=== PATIENT | male | born 1935 | race African-American/Black ===

== ENCOUNTER 2019-01-28 12:23 | Emergency (ER) | payer MEDICARE, OTHER ==
[~2019-01-28] VITALS: Ht 180.3 cm; Wt 109.0 kg
[~2019-01-28 12:23] MED LIST: AMLODIPINE; HYDROCHLOROTHIAZIDE; MECL-109 PO; NORVASC; PRED5DRO7 OP
[2019-01-28 12:38] VITALS: BP 144/63
== END 2019-01-28 15:07 | disposition home or self-care (01) ==
LOC: ER 12:23
DX: D17.9 Benign lipomatous neoplasm, unspecified (principal); I10 Essential (primary) hypertension; Z87.891 Personal history of nicotine dependence; Z88.0 Allergy status to penicillin; Z79.899 Other long term (current) drug therapy; Z85.46 Personal history of malignant neoplasm of prostate
CPT/HCPCS: 73610; 87070; 99284

== ENCOUNTER 2020-06-19 20:12 | Inpatient (IN) | payer OTHER ==
[~2020-06-19] VITALS: Ht 177.8 cm; Wt 113.9 kg
[~2020-06-19 20:12] MED LIST changes: +ALBU18HF2 IH; +AMLO10TA4 MT; +ASPI-1497 MT; +DYR5 MT; +FURO-151 MT; +IPRA3AMP9 NEB; +LIFI1DRO EACHEYE; +LIP40 MT; -MECL-109 PO; +MECL-159 PO; -NORVASC; +POTA20TA82 MT
[2020-06-19 21:26] LABS: BASOPHILS % 0.9 % (0.0-2.0); EOSINOPHILS % 2.4 % (0.0-5.0); HEMATOCRIT. 38.3 % (42.0-52.0); HEMOGLOBIN. 13.1 g/dL (14.0-18.0); LYMPHOCYTES % 19.2 % (20.0-50.0); MEAN CORPUSCULAR HEMOGLOBIN 31.5 pg (28.0-32.0); MEAN PLATELET VOLUME 9.1 fl (7.4-10.4); MONOCYTES % 11.2 % (2.0-8.0); NEUTROPHILS % 66.3 % (40.0-76.0); PLATELET 170 x1000/uL (130-400); RED BLOOD CELL COUNT 4.17 mill/uL (4.7-6.1); RED CELL DISTRIBUTION WIDTH 14.6 % (11.6-14.6)
[2020-06-19 21:30] LABS: CHLORIDE 100 mEq/L (98-107)
[2020-06-19 21:33] LABS: ETHANOL BLOOD < 10 mg/dL
[2020-06-19 21:43] LABS: *AMPHETAMINES SCREEN URINE NEGATIVE (NEGATIVE)
[2020-06-19 21:44] LABS: *BARBITURATES SCREEN URINE NEGATIVE (NEGATIVE); *BENZODIAZEPINES SCREEN URINE NEGATIVE (NEGATIVE); CANNABINOID URINE SCREEN NEGATIVE (NEGATIVE); METHADONE URINE SCREEN NEGATIVE (NEGATIVE); OPIATES URINE SCREEN NEGATIVE (NEGATIVE); PHENCYCLIDINE URINE SCREEN NEGATIVE (NEGATIVE)
[2020-06-19 21:45] LABS: *COCAINE SCREEN URINE NEGATIVE (NEGATIVE)
[2020-06-20 02:40] VITALS: BP 144/61
[2020-06-20 04:00] VITALS: BP 113/51
[2020-06-20] MEDS ORDERED: ONDANSETRON HCL 4MG/2ML INJ IV PRN (05:15)
[2020-06-20] MEDS ORDERED: NON FORMULARY PATIENT HOME MED XX SCH (05:15)
[2020-06-20] MEDS ORDERED: MECLIZINE 25MG TABLET PO PRN (05:15)
[2020-06-20] MEDS ORDERED: ALBUTEROL 6.7GM HFA INHALER INH PRN (05:15)
[2020-06-20] MEDS ORDERED: HYDROCODONE/ACETAMINOPHEN 5/325MG TABLET PO PRN (05:15)
[2020-06-20] MEDS ORDERED: ACETAMINOPHEN 325MG TABLET PO PRN (05:15)
[2020-06-20] MEDS ORDERED: ALBUTEROL (0.083%) 2.5MG/3ML NEB HHN PRN (05:30)
[2020-06-20 06:45] LABS: CREATINE KINASE 137 IU/L (39-308); CREATINE KINASE MB FRACTION 1.8 ng/mL (0.5-3.6)
[2020-06-20 08:04] VITALS: BP 120/45
[2020-06-20] MEDS: FUROSEMIDE 40MG TABLET PO SCH ×2 (08:26→16:39)
[2020-06-20] MEDS: POTASSIUM CHLORIDE 20MEQ TABLET SR PO SCH ×2 (08:26→16:38)
[2020-06-20] MEDS: ASPIRIN 81MG EC TABLET PO SCH (08:26)
[2020-06-20] MEDS: ENOXAPARIN 30MG/0.3ML SYR SUBCUT SCH ×2 (08:28→20:50)
[2020-06-20] MEDS: PREDNISOLONE ACETATE 1% OPHTH DROPS 5ML BOTHEYE SCH ×2 (08:28→20:50)
[2020-06-20] MEDS: TRIAMTERENE/HYDROCHLOROTHIAZID 75/50MG TABLET PO SCH (09:00)
[2020-06-20] MEDS: AMLODIPINE 10MG TABLET PO SCH (09:00)
[2020-06-20] MEDS ORDERED: IPRATROPIUM/ALBUTEROL 0.5-3(2.5)MG/3ML NEB NEB SCH (09:00)
[2020-06-20 12:09] VITALS: BP 117/58
[2020-06-20] MEDS: FAMOTIDINE 20MG/2ML VIAL IV SCH (15:49)
[2020-06-20 16:04] VITALS: BP 115/53
[2020-06-20] MEDS ORDERED: MORPHINE SULFATE 2 MG/ML CPJ (NOT FOR IM USE) IV PRN (17:25)
[2020-06-20] MEDS ORDERED: METHYLPREDNISOLONE SOD SUCC 40 MG/ML VIAL IV NR (17:25)
[2020-06-20 20:37] VITALS: BP 133/54
[2020-06-20] MEDS ORDERED: ATORVASTATIN CALCIUM 40MG TABLET PO SCH (21:00)
[2020-06-20] MEDS: ALBUTEROL (0.083%) 2.5MG/3ML NEB HHN SCH (21:22)
[2020-06-21] VITALS: BP 115/58
[2020-06-21] MEDS: ALBUTEROL (0.083%) 2.5MG/3ML NEB HHN SCH ×3 (02:55→15:22)
[2020-06-21 04:00] VITALS: BP 113/54
[2020-06-21 08:00] VITALS: BP 145/58
[2020-06-21] MEDS: FAMOTIDINE 20MG/2ML VIAL IV SCH (09:39)
[2020-06-21] MEDS: TRIAMTERENE/HYDROCHLOROTHIAZID 75/50MG TABLET PO SCH (09:39)
[2020-06-21] MEDS: POTASSIUM CHLORIDE 20MEQ TABLET SR PO SCH ×2 (09:39→17:15)
[2020-06-21] MEDS: FUROSEMIDE 40MG TABLET PO SCH ×2 (09:39→17:15)
[2020-06-21] MEDS: AMLODIPINE 10MG TABLET PO SCH (09:40)
[2020-06-21] MEDS: PREDNISOLONE ACETATE 1% OPHTH DROPS 5ML BOTHEYE SCH (09:40)
[2020-06-21] MEDS: ENOXAPARIN 30MG/0.3ML SYR SUBCUT SCH (09:40)
[2020-06-21] MEDS: ASPIRIN 81MG EC TABLET PO SCH (09:40)
[2020-06-21 12:00] VITALS: BP 137/55
[2020-06-21 12:56] LABS: HEMATOCRIT. 39.2 % (42.0-52.0); HEMOGLOBIN. 13.4 g/dL (14.0-18.0); MEAN CORPUSCULAR HEMOGLOBIN 31.9 pg (28.0-32.0); MEAN CORPUSCULAR VOLUME 93.2 fL (80.0-94.0); MEAN PLATELET VOLUME 8.7 fl (7.4-10.4); PLATELET 171 x1000/uL (130-400); RED CELL DISTRIBUTION WIDTH 14.9 % (11.6-14.6)
[2020-06-21 13:02] LABS: CHLORIDE 102 mEq/L (98-107)
[2020-06-21 13:41] LABS: BG BASE EXCESS 4.9 mmol/L (-2.0-2.0); BG CARBOXYHEMOGLOBIN 0.7 % (0.5-1.5); BG FRACTION INSPIRED OXYGEN 26; BG HCO3 ACT 30.1 mmol/L (22.0-26.0); BG METHEMOGLOBIN 0.3 % (0.0-1.5); BG OXYGEN SATURATION 94.9 % (92.0-98.5); BG PCO2 46.3 mmHg (35.0-45.0); BG PH 7.431 (7.350-7.450); BG PO2 69.3 mmHg (75.0-100.0); BG SAMPLE SITE RIGHT RADIAL; BG TOTAL HEMOGLOBIN 14.3 g/dL (12.0-18.0); BG VENT MODE NASAL CANNULA
[2020-06-21 14:34] LABS: PLATELET ESTIMATE NORMAL
[2020-06-21 15:18] LABS: CLARITY URINE CLEAR (CLEAR); COLOR URINE YELLOW (YELLOW); KETONES URINE NEGATIVE (NEGATIVE); LEUKOCYTE ESTERASE URINE NEGATIVE (NEGATIVE); NITRITE URINE NEGATIVE (NEGATIVE); OCCULT BLOOD URINE NEGATIVE (NEGATIVE); PH URINE 7.5 (4.5-8.0); PROTEIN URINE NEGATIVE (NEGATIVE); SPECIFIC GRAVITY URINE 1.009 (1.005-1.030); UROBILINOGEN URINE 0.2 E.U./dL (0.2-1.0)
[2020-06-21 16:00] VITALS: BP 128/54
[2020-06-21] MEDS ORDERED: FAMO-135 PO (16:05)
[2020-06-21] MEDS ORDERED: IPRA3AMP9 NEB (16:05)
[2020-06-21] MEDS ORDERED: P20 PO (16:05)
[2020-06-21] MEDS ORDERED: TRAM50TA94 MT (16:05)
[2020-06-21 17:43] VITALS: BP 154/81
[2020-06-21] MEDS ORDERED: FAMOTIDINE 20MG TABLET PO SCH (21:00)
== END 2020-06-21 19:10 | disposition home health service (06) | DRG 205 ==
LOC: ER 20:12 → 6WST 23:58 → ENRESERV 06-20 01:38
PROVIDERS: ADMIT Internal Medicine; ATTEND Internal Medicine
DX: M94.0 Chondrocostal junction syndrome [Tietze] (principal); I50.33 Acute on chronic diastolic (congestive) heart failure; J96.20 Acute and chronic respiratory failure, unspecified whether with hypoxia or hypercapnia; J44.1 Chronic obstructive pulmonary disease with (acute) exacerbation; I11.0 Hypertensive heart disease with heart failure; E66.9 Obesity, unspecified; Z85.46 Personal history of malignant neoplasm of prostate; C61 Malignant neoplasm of prostate; D64.9 Anemia, unspecified; E78.5 Hyperlipidemia, unspecified; I25.10 Atherosclerotic heart disease of native coronary artery without angina pectoris; I48.0 Paroxysmal atrial fibrillation; K40.90 Unilateral inguinal hernia, without obstruction or gangrene, not specified as recurrent; F10.10 Alcohol abuse, uncomplicated; N41.9 Inflammatory disease of prostate, unspecified; R73.9 Hyperglycemia, unspecified; I35.0 Nonrheumatic aortic (valve) stenosis; Z87.891 Personal history of nicotine dependence; Z68.36 Body mass index [BMI] 36.0-36.9, adult; Z79.899 Other long term (current) drug therapy; Z71.3 Dietary counseling and surveillance; Z88.0 Allergy status to penicillin; Z79.51 Long term (current) use of inhaled steroids
CPT/HCPCS: 36415; 36600; 71045; 74176; 80053; 80305; 80320; 81003; 82375; 82550; 82553; 82805; 83880; 84484; 85025; 85379; 93005; 93970; 94640; 99285; J1650; J2920; J3490; G0480

== ENCOUNTER 2021-09-12 11:11 | Emergency (ER) | payer MEDICARE, OTHER ==
[~2021-09-12] VITALS: Ht 180.3 cm; Wt 116.0 kg
[~2021-09-12 11:11] MED LIST changes: -AMLODIPINE; +FAMO-135 PO; -LIFI1DRO EACHEYE; +LIFI1DRO3 EACHEYE; +P20 PO; +POTA-205 MT; -POTA20TA82 MT; +TRAM50TA94 MT
[2021-09-12 13:19] LABS: BASOPHILS % 0.7 % (0.0-2.0); EOSINOPHILS % 0.7 % (0.0-5.0); HEMATOCRIT. 38.2 % (42.0-52.0); HEMOGLOBIN. 12.7 g/dL (14.0-18.0); MEAN CORPUSCULAR HEMOGLOBIN 31.2 pg (28.0-32.0); MEAN PLATELET VOLUME 8.6 fl (7.4-10.4); MONOCYTES % 9.9 % (2.0-8.0); NEUTROPHILS % 71.7 % (40.0-76.0); PLATELET 151 x1000/uL (130-400); RED BLOOD CELL COUNT 4.06 mill/uL (4.7-6.1); RED CELL DISTRIBUTION WIDTH 16.1 % (11.6-14.6)
[2021-09-12 13:25] LABS: CHLORIDE 103 mEq/L (98-107)
[2021-09-12 13:29] LABS: CLARITY URINE CLEAR (CLEAR); COLOR URINE YELLOW (YELLOW); KETONES URINE NEGATIVE (NEGATIVE); LEUKOCYTE ESTERASE URINE NEGATIVE (NEGATIVE); NITRITE URINE NEGATIVE (NEGATIVE); OCCULT BLOOD URINE 3+ (NEGATIVE); PH URINE 7.5 (4.5-8.0); PROTEIN URINE NEGATIVE (NEGATIVE); SPECIFIC GRAVITY URINE 1.008 (1.005-1.030); UROBILINOGEN URINE 0.2 E.U./dL (0.2-1.0)
[2021-09-12 13:29] LABS: PROTHROMBIN TIME 11.2 sec (9.6-11.0)
[2021-09-12 16:09] VITALS: BP 152/62
== END 2021-09-12 16:45 | disposition home or self-care (01) ==
LOC: ER 11:11
DX: K40.90 Unilateral inguinal hernia, without obstruction or gangrene, not specified as recurrent (principal); R31.9 Hematuria, unspecified; I10 Essential (primary) hypertension; E78.00 Pure hypercholesterolemia, unspecified; J44.9 Chronic obstructive pulmonary disease, unspecified; K21.9 Gastro-esophageal reflux disease without esophagitis; M10.9 Gout, unspecified; F17.210 Nicotine dependence, cigarettes, uncomplicated; Z85.46 Personal history of malignant neoplasm of prostate; Z79.82 Long term (current) use of aspirin; Z92.3 Personal history of irradiation; Z88.0 Allergy status to penicillin; Z98.890 Other specified postprocedural states
CPT/HCPCS: 36415; 74176; 80053; 81003; 85025; 99284

== ENCOUNTER 2024-03-30 10:45 | Inpatient (IN) | payer MEDICARE ==
[~2024-03-30] VITALS: Ht 177.8 cm; Wt 99.8 kg
[~2024-03-30 10:45] MED LIST changes: +CARB15DR EACHEYE; +DOCU-138 MT; +DOXA-15 MT; +FLUT1BLS3 INH; -MECL-159 PO; +MECL-299 PO; +POTA-205 PO; +SPIR25TA6 MT
[2024-03-30 11:30] LABS: BASOPHILS % 0.5 % (0.0-2.0); DIFFERENTIAL COMMENT 0; EOSINOPHILS % 0.9 % (0.0-5.0); HEMATOCRIT. 33.8 % (42.0-52.0); LYMPHOCYTES % 10.6 % (20.0-50.0); MEAN CORPUSCULAR HEMOGLOBIN 32.5 pg (28.0-32.0); MEAN CORPUSCULAR HGB CONC 32.4 g/dL (31.0-37.0); MEAN CORPUSCULAR VOLUME 100.1 fL (80.0-94.0); MEAN PLATELET VOLUME 8.1 fl (7.4-10.4); PLATELET 179 x1000/uL (130-400); RED BLOOD CELL COUNT 3.37 mill/uL (4.7-6.1); RED CELL DISTRIBUTION WIDTH 15.8 % (11.6-14.6); WHITE BLOOD COUNT 6.9 x1000/uL (4.5-11.0)
[2024-03-30 11:38] LABS: CHLORIDE 103 mEq/L (98-107); POTASSIUM 4.1 mEq/L (3.5-5.1); SODIUM 140 mEq/L (136-145)
[2024-03-30 11:39] LABS: CARBON DIOXIDE 31 mEq/L (21-32)
[2024-03-30 11:40] LABS: CALCIUM 9.4 mg/dL (8.7-10.4)
[2024-03-30 11:44] LABS: CREATININE 0.9 mg/dL (0.6-1.3); GLUCOSE 153 mg/dL (70-105); UREA NITROGEN BLOOD 19 mg/dL (9-23)
[2024-03-30 11:45] LABS: TROPONIN I HIGH SENSITIVITY 10 ng/L (3.0-53)
[2024-03-30] MEDS: ASPIRIN 325MG EC TABLET PO ONE (14:07)
[2024-03-30] MEDS ORDERED: ACETAMINOPHEN 325MG TABLET PO PRN (15:15)
[2024-03-30] MEDS ORDERED: CLONIDINE 0.1MG TABLET PO PRN (15:15)
[2024-03-30] MEDS ORDERED: ONDANSETRON HCL 4MG/2ML INJ IV PRN (15:15)
[2024-03-30] MEDS ORDERED: HYDROCODONE/ACETAMINOPHEN 5/325MG TABLET PO PRN (15:15)
[2024-03-30] MEDS ORDERED: HYDRALAZINE 20MG/ML VIAL IV PRN (15:15)
[2024-03-30] MEDS ORDERED: GUAIFENESIN 200MG/10ML SUGAR FREE UDC PO PRN (15:15)
[2024-03-30] MEDS ORDERED: NALOXONE HCL 0.4MG/ML VIAL IV PRN (15:45)
[2024-03-30 16:54] LABS: *AMPHETAMINES SCREEN URINE NEGATIVE (NEGATIVE); *BARBITURATES SCREEN URINE NEGATIVE (NEGATIVE); *BENZODIAZEPINES SCREEN URINE NEGATIVE (NEGATIVE); *COCAINE SCREEN URINE NEGATIVE (NEGATIVE); CANNABINOID URINE SCREEN NEGATIVE (NEGATIVE); ECSTASY MDMA SCREEN URINE NEGATIVE (NEGATIVE); METHADONE URINE SCREEN NEGATIVE (NEGATIVE); OPIATES URINE SCREEN NEGATIVE (NEGATIVE); PHENCYCLIDINE URINE SCREEN NEGATIVE (NEGATIVE)
[2024-03-30] MEDS: ENOXAPARIN 40MG/0.4ML SYR SUBCUT SCH (17:47)
[2024-03-30] MEDS: FUROSEMIDE 40MG/4ML VIAL IVP SCH (17:47)
[2024-03-30] MEDS ORDERED: ZOLPIDEM TARTRATE 5MG TABLET PO PRN (21:00)
[2024-03-30 22:40] VITALS: BP 110/50; PULSE 80; RESP 18; TEMP 36.7
[2024-03-30] MEDS ORDERED: FLUT1BLS (23:22)
[2024-03-31] VITALS: BP 105/47; PULSE 77; RESP 18; TEMP 36.7; O2SAT 95
[2024-03-31 00:37] LABS: CREATINE KINASE MB FRACTION 2.1 ng/mL (0.5-3.6)
[2024-03-31 04:00] VITALS: BP 120/49; PULSE 63; RESP 18; TEMP 36.6; O2SAT 100
[2024-03-31 07:02] LABS: BASOPHILS % 0.3 % (0.0-2.0); EOSINOPHILS % 0.8 % (0.0-5.0); HEMATOCRIT. 30.2 % (42.0-52.0); HEMOGLOBIN. 9.8 g/dL (14.0-18.0); LYMPHOCYTES % 8.6 % (20.0-50.0); MEAN CORPUSCULAR HEMOGLOBIN 32.3 pg (28.0-32.0); MEAN CORPUSCULAR HGB CONC 32.6 g/dL (31.0-37.0); MEAN CORPUSCULAR VOLUME 99.2 fL (80.0-94.0); MEAN PLATELET VOLUME 8.6 fl (7.4-10.4); MONOCYTES % 8.6 % (2.0-8.0); NEUTROPHILS % 81.7 % (40.0-76.0); PLATELET 163 x1000/uL (130-400); RED BLOOD CELL COUNT 3.05 mill/uL (4.7-6.1); RED CELL DISTRIBUTION WIDTH 16.4 % (11.6-14.6)
[2024-03-31 07:13] LABS: CALCIUM 8.9 mg/dL (8.7-10.4); CHLORIDE 103 mEq/L (98-107); SODIUM 140 mEq/L (136-145)
[2024-03-31 07:14] LABS: CARBON DIOXIDE 32 mEq/L (21-32)
[2024-03-31 07:16] LABS: CREATINE KINASE MB FRACTION 1.6 ng/mL (0.5-3.6); TROPONIN I HIGH SENSITIVITY 27 ng/L (3.0-53)
[2024-03-31 07:19] LABS: CREATININE 0.9 mg/dL (0.6-1.3); GLUCOSE 122 mg/dL (70-105); UREA NITROGEN BLOOD 21 mg/dL (9-23)
[2024-03-31 07:21] LABS: CREATINE KINASE 113 IU/L (46-171)
[2024-03-31 08:00] VITALS: BP 113/57; PULSE 60; RESP 16; TEMP 36.8; O2SAT 95; O2SAT 99
[2024-03-31] MEDS: SPIRONOLACTONE 25MG TABLET PO SCH (08:54)
[2024-03-31] MEDS: AMLODIPINE 10MG TABLET PO SCH (08:54)
[2024-03-31] MEDS: ASPIRIN 81MG EC TABLET PO SCH (08:55)
[2024-03-31] MEDS: PANTOPRAZOLE SODIUM 40 MG/VIAL IV SCH (08:55)
[2024-03-31] MEDS ORDERED: TRIAMTERENE 50MG CAPSULE PO SCH (09:00)
[2024-03-31 12:00] VITALS: BP 130/58; PULSE 67; RESP 18; TEMP 36.6; O2SAT 100; O2SAT 93
[2024-03-31 16:11] VITALS: BP 120/55; PULSE 62; RESP 20; TEMP 36.7; O2SAT 94
[2024-03-31] MEDS: DOXAZOSIN MESYLATE 4MG TABLET PO SCH (17:44)
[2024-03-31] MEDS: IPRATROPIUM/ALBUTEROL 0.5-3(2.5)MG/3ML NEB NEB PRN (18:07)
[2024-03-31 20:00] VITALS: BP 129/63; PULSE 70; RESP 19; TEMP 36.2; O2SAT 96
[2024-03-31] MEDS: ATORVASTATIN CALCIUM 40MG TABLET PO SCH (20:37)
[2024-03-31] MEDS: FLUTICASONE/VILANTEROL 200-25 BLST.W.DEV ORI SCH (20:38)
[2024-04-01] VITALS: BP 116/52; PULSE 65; RESP 20; TEMP 36.9; O2SAT 96
[2024-04-01 07:12] LABS: CALCIUM 9.5 mg/dL (8.7-10.4); CHLORIDE 102 mEq/L (98-107); SODIUM 139 mEq/L (136-145)
[2024-04-01 07:13] LABS: CARBON DIOXIDE 31 mEq/L (21-32)
[2024-04-01 07:18] LABS: CREATININE 0.8 mg/dL (0.6-1.3); GLUCOSE 121 mg/dL (70-105); UREA NITROGEN BLOOD 21 mg/dL (9-23)
[2024-04-01 07:30] LABS: BASOPHILS % 0.5 % (0.0-2.0); EOSINOPHILS % 1.6 % (0.0-5.0); HEMATOCRIT. 30.1 % (42.0-52.0); LYMPHOCYTES % 13.2 % (20.0-50.0); MEAN CORPUSCULAR HGB CONC 33.1 g/dL (31.0-37.0); MEAN CORPUSCULAR VOLUME 99.4 fL (80.0-94.0); MEAN PLATELET VOLUME 8.5 fl (7.4-10.4); MONOCYTES % 10.2 % (2.0-8.0); NEUTROPHILS % 74.5 % (40.0-76.0); PLATELET 159 x1000/uL (130-400); RED BLOOD CELL COUNT 3.03 mill/uL (4.7-6.1); RED CELL DISTRIBUTION WIDTH 16.4 % (11.6-14.6); WHITE BLOOD COUNT 6.6 x1000/uL (4.5-11.0)
[2024-04-01 08:00] VITALS: BP 115/45; PULSE 60; RESP 18; TEMP 36.7; O2SAT 97
[2024-04-01 12:00] VITALS: BP 103/43; PULSE 68; RESP 18; TEMP 36.8; O2SAT 96
[2024-04-01 15:18] VITALS: BP 103/43; PULSE 68; TEMP 98.2; O2SAT 96
[2024-04-01 16:00] VITALS: BP 119/49; PULSE 80; RESP 18; TEMP 36.8; O2SAT 95
[2024-04-02] MEDS ORDERED: FAMOTIDINE 20MG TABLET PO SCH (09:00)
== END 2024-04-01 16:25 | disposition home or self-care (01) | DRG 291 ==
LOC: ER 10:52 → 8WST 13:51 → EDBEDREQ 13:59 → EDBEDREQTM 13:59
PROVIDERS: ADMIT Internal Medicine; ATTEND Internal Medicine
DX: I11.0 Hypertensive heart disease with heart failure (principal); I50.33 Acute on chronic diastolic (congestive) heart failure; I48.0 Paroxysmal atrial fibrillation; E78.00 Pure hypercholesterolemia, unspecified; I25.10 Atherosclerotic heart disease of native coronary artery without angina pectoris; J44.9 Chronic obstructive pulmonary disease, unspecified; C67.9 Malignant neoplasm of bladder, unspecified; I27.20 Pulmonary hypertension, unspecified; Z79.899 Other long term (current) drug therapy; Z99.81 Dependence on supplemental oxygen; Z88.0 Allergy status to penicillin; Z88.8 Allergy status to other drugs, medicaments and biological substances; I25.2 Old myocardial infarction
CPT/HCPCS: 36415; 71045; 80048; 80305; 82550; 82553; 83880; 84484; 85025; 93005; 93970; 99285; J1650; J1940; J2470

== ENCOUNTER 2024-06-16 19:50 | Inpatient (IN) | payer MEDICARE ==
[~2024-06-16] VITALS: Ht 188 cm; Wt 105.9 kg
[~2024-06-16 19:50] MED LIST changes: -ALBU18HF2 IH; -AMLO10TA4 MT; -DYR5 MT; +FLUT1BLS; -FLUT1BLS3 INH; -HYDROCHLOROTHIAZIDE; -LIFI1DRO3 EACHEYE; +LIFI1DRO5 EACHEYE; -P20 PO; -POTA-205 MT; -POTA-205 PO; -PRED5DRO7 OP; -TRAM50TA94 MT
[2024-06-16] MEDS ORDERED: METHYLPREDNISOLONE 40MG/ML INJ IV ONE (20:15)
[2024-06-16 20:31] LABS: BASOPHILS % 0.6 % (0.0-2.0); EOSINOPHILS % 1.7 % (0.0-5.0); MEAN CORPUSCULAR HEMOGLOBIN 32.2 pg (28.0-32.0); MEAN CORPUSCULAR HGB CONC 33.5 g/dL (31.0-37.0); MEAN CORPUSCULAR VOLUME 96.3 fL (80.0-94.0); MONOCYTES % 13.4 % (2.0-8.0); NEUTROPHILS % 67.3 % (40.0-76.0); PLATELET 157 x1000/uL (130-400); RED BLOOD CELL COUNT 3.11 mill/uL (4.7-6.1); RED CELL DISTRIBUTION WIDTH 16.5 % (11.6-14.6); WHITE BLOOD COUNT 6.4 x1000/uL (4.5-11.0)
[2024-06-16] MEDS: METHYLPREDNISOLONE SOD SUCC 125MG/2ML (ACT-O-VIAL) IV NR (20:33)
[2024-06-16 20:36] LABS: CHLORIDE 98 mEq/L (98-107); POTASSIUM 3.4 mEq/L (3.5-5.1); SODIUM 136 mEq/L (136-145)
[2024-06-16 20:37] LABS: CARBON DIOXIDE 30 mEq/L (21-32)
[2024-06-16 20:38] LABS: CALCIUM 8.7 mg/dL (8.7-10.4)
[2024-06-16 20:42] LABS: GLUCOSE 105 mg/dL (70-105); UREA NITROGEN BLOOD 19 mg/dL (9-23)
[2024-06-16 20:45] LABS: TROPONIN I HIGH SENSITIVITY 7 ng/L (3.0-53)
[2024-06-16 21:15] LABS: CLARITY URINE CLEAR (CLEAR); COLOR URINE YELLOW (YELLOW); GLUCOSE URINE NEGATIVE (NEGATIVE); KETONES URINE NEGATIVE (NEGATIVE); LEUKOCYTE ESTERASE URINE 2+ (NEGATIVE); NITRITE URINE NEGATIVE (NEGATIVE); OCCULT BLOOD URINE TRACE (NEGATIVE); PROTEIN URINE 1+ (NEGATIVE); SPECIFIC GRAVITY URINE 1.017 (1.005-1.030)
[2024-06-16 21:27] LABS: RBC URINE 0-2 /hpf (0-2)
[2024-06-16 21:28] LABS: BACTERIA URINE NONE SEEN; SQUAMOUS EPITHELIAL CELL URINE FEW /lpf (RARE/1+)
[2024-06-17] VITALS (7 sets, daily range): BP systolic 103–147; BP diastolic 58–67; PULSE 54–81; RESP 16–19; TEMP 35.8–36.6; O2SAT 96–98
[2024-06-17] MEDS ORDERED: CLONIDINE 0.1MG TABLET PO PRN (00:15)
[2024-06-17] MEDS: PANTOPRAZOLE 40MG DR TABLET PO SCH (06:47)
[2024-06-17] MEDS: METHYLPREDNISOLONE SOD SUCC 125MG/2ML (ACT-O-VIAL) IV SCH (06:47)
[2024-06-17] MEDS: FUROSEMIDE 40MG TABLET PO SCH (06:48)
[2024-06-17 06:54] LABS: TROPONIN I HIGH SENSITIVITY 8 ng/L (3.0-53)
[2024-06-17] MEDS ORDERED: IPRATROPIUM/ALBUTEROL 0.5-3(2.5)MG/3ML NEB HHN SCH (09:00)
[2024-06-17] MEDS: ENOXAPARIN 40MG/0.4ML SYR SUBCUT SCH (09:00)
[2024-06-17] MEDS: ASPIRIN 81MG EC TABLET PO SCH (09:33)
[2024-06-17] MEDS: BUDESONIDE 0.5MG/2ML NEB HHN SCH (12:47)
[2024-06-17 16:47] LABS: TROPONIN I HIGH SENSITIVITY 6 ng/L (3.0-53)
[2024-06-17] MEDS: DOXAZOSIN MESYLATE 4MG TABLET PO SCH (21:19)
[2024-06-17] MEDS: ATORVASTATIN CALCIUM 20MG TABLET PO SCH (21:19)
[2024-06-18] VITALS (9 sets, daily range): BP systolic 105–130; BP diastolic 44–52; PULSE 53–67; RESP 18–20; TEMP 35.9–36.7; O2SAT 95–100
[2024-06-18] MEDS: HYDROCODONE/ACETAMINOPHEN 5/325MG TABLET PO PRN (02:54)
[2024-06-18 08:33] LABS: TRIGLYCERIDE 39 mg/dL (0-150)
[2024-06-18 08:34] LABS: LDL CHOLESTEROL 58 mg/dL (5-100)
[2024-06-18 08:35] LABS: ALANINE AMINOTRANSFERASE 13 IU/L (10-49); ALBUMIN 3.7 g/dL (3.2-4.8); ASPARTATE AMINOTRANSFERASE 22 IU/L (<34); BILIRUBIN DIRECT 0.1 mg/dL (<=3.0); BILIRUBIN TOTAL 0.3 mg/dL (0.1-1.0); CHOLESTEROL 120 mg/dL (<200); HDL CHOLESTEROL 42 mg/dL (>55); PROTEIN TOTAL 7.9 g/dL (6.0-8.3)
[2024-06-18 08:37] LABS: THYROID STIMULATING HORMONE 0.63 uIU/mL (0.55-4.78)
[2024-06-18] MEDS: SPIRONOLACTONE 25MG TABLET PO SCH (09:27)
[2024-06-18] MEDS: DOCUSATE SODIUM 100MG CAPSULE PO SCH (09:27)
[2024-06-18 11:10] LABS: HEMATOCRIT. 30.3 % (42.0-52.0); HEMOGLOBIN. 9.8 g/dL (14.0-18.0); MEAN CORPUSCULAR HEMOGLOBIN 31.5 pg (28.0-32.0); MEAN CORPUSCULAR HGB CONC 32.4 g/dL (31.0-37.0); MEAN CORPUSCULAR VOLUME 97.4 fL (80.0-94.0); MEAN PLATELET VOLUME 8.9 fl (7.4-10.4); PLATELET 182 x1000/uL (130-400); RED BLOOD CELL COUNT 3.11 mill/uL (4.7-6.1); RED CELL DISTRIBUTION WIDTH 16.8 % (11.6-14.6); WHITE BLOOD COUNT 13.7 x1000/uL (4.5-11.0)
[2024-06-18 11:13] LABS: DIFFERENTIAL COMMENT 1
[2024-06-18 11:33] LABS: CHLORIDE 102 mEq/L (98-107); POTASSIUM 4.2 mEq/L (3.5-5.1); SODIUM 138 mEq/L (136-145)
[2024-06-18 11:34] LABS: CARBON DIOXIDE 26 mEq/L (21-32)
[2024-06-18 11:39] LABS: CREATININE 0.8 mg/dL (0.6-1.3); GLUCOSE 122 mg/dL (70-105); UREA NITROGEN BLOOD 24 mg/dL (9-23)
[2024-06-18 12:04] LABS: ANISOCYTOSIS 1+; PLATELET ESTIMATE NORMAL
[2024-06-18] MEDS ORDERED: NALOXONE HCL 0.4MG/ML VIAL IV PRN (13:30)
[2024-06-18] MEDS: IPRATROPIUM BROMIDE (0.02%) 0.5MG/2.5ML NEB HHN SCH (16:40)
[2024-06-18] MEDS: MECLIZINE 25MG TABLET PO SCH (17:38)
[2024-06-18] MEDS ORDERED: FLUTICASONE/VILANTEROL 200-25 BLST.W.DEV ORI SCH (21:00)
[2024-06-18] MEDS: DOCUSATE SODIUM 100MG CAPSULE PO NR (21:40)
[2024-06-19] VITALS (12 sets, daily range): BP systolic 111–137; BP diastolic 50–65; PULSE 52–62; RESP 16–20; TEMP 36.1–37.3; O2SAT 17–98
[2024-06-19 08:00] LABS: HEMATOCRIT. 30.6 % (42.0-52.0); HEMOGLOBIN. 10.1 g/dL (14.0-18.0); MEAN CORPUSCULAR HEMOGLOBIN 31.9 pg (28.0-32.0); MEAN CORPUSCULAR HGB CONC 32.8 g/dL (31.0-37.0); MEAN CORPUSCULAR VOLUME 97.3 fL (80.0-94.0); MEAN PLATELET VOLUME 8.4 fl (7.4-10.4); PLATELET 176 x1000/uL (130-400); RED BLOOD CELL COUNT 3.15 mill/uL (4.7-6.1); RED CELL DISTRIBUTION WIDTH 16.6 % (11.6-14.6)
[2024-06-19 08:37] LABS: DIFFERENTIAL COMMENT 1
[2024-06-19 08:41] LABS: CARBON DIOXIDE 32 mEq/L (21-32); CHLORIDE 101 mEq/L (98-107); POTASSIUM 4.3 mEq/L (3.5-5.1); SODIUM 139 mEq/L (136-145)
[2024-06-19 08:42] LABS: CALCIUM 9.5 mg/dL (8.7-10.4)
[2024-06-19 08:46] LABS: CREATININE 0.8 mg/dL (0.6-1.3)
[2024-06-19 08:47] LABS: GLUCOSE 128 mg/dL (70-105); UREA NITROGEN BLOOD 26 mg/dL (9-23)
[2024-06-19] MEDS ORDERED: HYDRALAZINE 20MG/ML VIAL IV PRN (10:30)
[2024-06-19 15:45] LABS: PLATELET ESTIMATE NORMAL
[2024-06-19] MEDS: BREO ELLIPTA ORI SCH (18:24)
[2024-06-19] MEDS: DOCUSATE SODIUM 100MG CAPSULE PO SCH (21:54)
[2024-06-20] VITALS (11 sets, daily range): BP systolic 110–142; BP diastolic 50–67; PULSE 56–87; RESP 2–22; TEMP 36.1–37; O2SAT 94–99
[2024-06-20] MEDS: FAMOTIDINE 20MG TABLET PO SCH (06:23)
[2024-06-20 07:48] LABS: BASOPHILS % 0.1 % (0.0-2.0); DIFFERENTIAL COMMENT 0; HEMATOCRIT. 30.4 % (42.0-52.0); HEMOGLOBIN. 10.2 g/dL (14.0-18.0); LYMPHOCYTES % 7.7 % (20.0-50.0); MEAN CORPUSCULAR HEMOGLOBIN 32.2 pg (28.0-32.0); MEAN CORPUSCULAR HGB CONC 33.4 g/dL (31.0-37.0); MEAN CORPUSCULAR VOLUME 96.2 fL (80.0-94.0); MEAN PLATELET VOLUME 8.6 fl (7.4-10.4); MONOCYTES % 6.9 % (2.0-8.0); NEUTROPHILS % 85.3 % (40.0-76.0); PLATELET 175 x1000/uL (130-400); RED BLOOD CELL COUNT 3.16 mill/uL (4.7-6.1); RED CELL DISTRIBUTION WIDTH 16.1 % (11.6-14.6); WHITE BLOOD COUNT 12.6 x1000/uL (4.5-11.0)
[2024-06-20 08:00] LABS: CARBON DIOXIDE 30 mEq/L (21-32); CHLORIDE 99 mEq/L (98-107); SODIUM 136 mEq/L (136-145)
[2024-06-20 08:02] LABS: CALCIUM 9.2 mg/dL (8.7-10.4)
[2024-06-20 08:06] LABS: CREATININE 0.8 mg/dL (0.6-1.3); GLUCOSE 119 mg/dL (70-105); UREA NITROGEN BLOOD 24 mg/dL (9-23)
[2024-06-21] VITALS (10 sets, daily range): BP systolic 104–143; BP diastolic 53–70; PULSE 53–83; RESP 16–20; TEMP 36.1–36.6; O2SAT 95–100
[2024-06-21 06:28] LABS: HEMOGLOBIN. 11.1 g/dL (14.0-18.0); MEAN CORPUSCULAR HEMOGLOBIN 32.2 pg (28.0-32.0); MEAN CORPUSCULAR HGB CONC 33.7 g/dL (31.0-37.0); MEAN CORPUSCULAR VOLUME 95.4 fL (80.0-94.0); MEAN PLATELET VOLUME 8.6 fl (7.4-10.4); PLATELET 167 x1000/uL (130-400); RED BLOOD CELL COUNT 3.46 mill/uL (4.7-6.1); RED CELL DISTRIBUTION WIDTH 16.3 % (11.6-14.6); WHITE BLOOD COUNT 10.4 x1000/uL (4.5-11.0)
[2024-06-21 06:30] LABS: CALCIUM 9.2 mg/dL (8.7-10.4); CARBON DIOXIDE 33 mEq/L (21-32); CHLORIDE 97 mEq/L (98-107); POTASSIUM 4.2 mEq/L (3.5-5.1); SODIUM 136 mEq/L (136-145)
[2024-06-21 06:35] LABS: CREATININE 0.8 mg/dL (0.6-1.3)
[2024-06-21 06:36] LABS: GLUCOSE 150 mg/dL (70-105); UREA NITROGEN BLOOD 26 mg/dL (9-23)
[2024-06-21 07:11] LABS: DIFFERENTIAL COMMENT 1
[2024-06-21 14:39] LABS: ANISOCYTOSIS 1+; PLATELET ESTIMATE NORMAL
[2024-06-21] MEDS: METHYLPREDNISOLONE SOD SUCC 40MG/ML (ACT-O-VIAL) IV SCH (17:55)
[2024-06-21] MEDS ORDERED: IOHEXOL-300 100 ML BOTTLE ONE (23:14)
[2024-06-22] VITALS (10 sets, daily range): BP systolic 124–151; BP diastolic 57–72; PULSE 56–98; RESP 16–20; TEMP 36.1–36.5; O2SAT 95–98
[2024-06-22 06:53] LABS: CARBON DIOXIDE 33 mEq/L (21-32); CHLORIDE 99 mEq/L (98-107); SODIUM 137 mEq/L (136-145)
[2024-06-22 06:54] LABS: CALCIUM 9.6 mg/dL (8.7-10.4)
[2024-06-22 06:58] LABS: CREATININE 0.9 mg/dL (0.6-1.3)
[2024-06-22 06:59] LABS: GLUCOSE 131 mg/dL (70-105); UREA NITROGEN BLOOD 27 mg/dL (9-23)
[2024-06-22 07:09] LABS: HEMATOCRIT. 32.9 % (42.0-52.0); HEMOGLOBIN. 11.1 g/dL (14.0-18.0); MEAN CORPUSCULAR HEMOGLOBIN 32.2 pg (28.0-32.0); MEAN CORPUSCULAR HGB CONC 33.7 g/dL (31.0-37.0); MEAN CORPUSCULAR VOLUME 95.6 fL (80.0-94.0); MEAN PLATELET VOLUME 8.7 fl (7.4-10.4); PLATELET 180 x1000/uL (130-400); RED BLOOD CELL COUNT 3.45 mill/uL (4.7-6.1); RED CELL DISTRIBUTION WIDTH 16.3 % (11.6-14.6); WHITE BLOOD COUNT 12.7 x1000/uL (4.5-11.0)
[2024-06-22 07:29] LABS: DIFFERENTIAL COMMENT 1
[2024-06-22] MEDS: NITROGLYCERIN SPRAY/4.9GM CAN TL NR (09:55)
[2024-06-22] MEDS ORDERED: IOHEXOL-350 100 ML BOTTLE ONE (11:19)
[2024-06-22 12:01] LABS: PLATELET ESTIMATE NORMAL
[2024-06-22] MEDS: AMLODIPINE 5MG TABLET PO SCH (14:32)
[2024-06-23] VITALS (8 sets, daily range): BP systolic 101–136; BP diastolic 48–67; PULSE 58–75; RESP 15–22; TEMP 36.1–36.9; O2SAT 90–99
[2024-06-23 06:36] LABS: CHLORIDE 96 mEq/L (98-107); POTASSIUM 4.2 mEq/L (3.5-5.1); SODIUM 136 mEq/L (136-145)
[2024-06-23 06:37] LABS: CARBON DIOXIDE 32 mEq/L (21-32)
[2024-06-23 06:42] LABS: CREATININE 0.9 mg/dL (0.6-1.3); GLUCOSE 162 mg/dL (70-105); UREA NITROGEN BLOOD 29 mg/dL (9-23)
[2024-06-23] MEDS ORDERED: ATROPINE SULFATE 1MG/10ML SYR IV PRN (13:15)
[2024-06-23] MEDS ORDERED: ACETAMINOPHEN 325MG TABLET PO PRN (13:15)
[2024-06-23] MEDS ORDERED: MIDAZOLAM HCL 2 MG/2 ML VIAL ONE (15:04)
[2024-06-23] MEDS ORDERED: FENTANYL CITRATE/PF 50MCG/ML 2ML VIAL ONE (15:05)
[2024-06-23] MEDS: METHYLPREDNISOLONE SOD SUCC 40MG/ML (ACT-O-VIAL) IV SCH (17:12)
[2024-06-23 20:59] LABS: HEMATOCRIT. 35.4 % (42.0-52.0); HEMOGLOBIN. 11.8 g/dL (14.0-18.0); MEAN CORPUSCULAR HEMOGLOBIN 32.3 pg (28.0-32.0); MEAN CORPUSCULAR HGB CONC 33.5 g/dL (31.0-37.0); MEAN CORPUSCULAR VOLUME 96.6 fL (80.0-94.0); MEAN PLATELET VOLUME 8.7 fl (7.4-10.4); PLATELET 164 x1000/uL (130-400); RED BLOOD CELL COUNT 3.66 mill/uL (4.7-6.1); RED CELL DISTRIBUTION WIDTH 16.1 % (11.6-14.6); WHITE BLOOD COUNT 10.5 x1000/uL (4.5-11.0)
[2024-06-23 21:01] LABS: DIFFERENTIAL COMMENT 1
[2024-06-23 21:06] LABS: CHLORIDE 96 mEq/L (98-107); POTASSIUM 4.2 mEq/L (3.5-5.1); SODIUM 135 mEq/L (136-145)
[2024-06-23 21:07] LABS: CALCIUM 8.6 mg/dL (8.7-10.4); CARBON DIOXIDE 31 mEq/L (21-32)
[2024-06-23 21:09] LABS: INR 1.1; PROTHROMBIN TIME 11.7 sec (9.6-11.0)
[2024-06-23 21:12] LABS: CREATININE 1.1 mg/dL (0.6-1.3); GLUCOSE 255 mg/dL (70-105); PLATELET ESTIMATE NORMAL; UREA NITROGEN BLOOD 30 mg/dL (9-23)
[2024-06-24] VITALS: BP 133/59; PULSE 60; RESP 21; TEMP 36.1; O2SAT 99
[2024-06-24 04:00] VITALS: BP 141/60; PULSE 54; RESP 20; TEMP 35.9; O2SAT 96
[2024-06-24 06:50] LABS: HEMATOCRIT. 33.6 % (42.0-52.0); HEMOGLOBIN. 11.3 g/dL (14.0-18.0); MEAN CORPUSCULAR HEMOGLOBIN 32.3 pg (28.0-32.0); MEAN CORPUSCULAR HGB CONC 33.6 g/dL (31.0-37.0); MEAN CORPUSCULAR VOLUME 96.1 fL (80.0-94.0); MEAN PLATELET VOLUME 8.9 fl (7.4-10.4); PLATELET 159 x1000/uL (130-400); RED CELL DISTRIBUTION WIDTH 16.1 % (11.6-14.6); WHITE BLOOD COUNT 9.4 x1000/uL (4.5-11.0)
[2024-06-24 06:56] LABS: CARBON DIOXIDE 34 mEq/L (21-32); CHLORIDE 99 mEq/L (98-107); POTASSIUM 4.1 mEq/L (3.5-5.1); SODIUM 137 mEq/L (136-145)
[2024-06-24 06:57] LABS: CALCIUM 8.8 mg/dL (8.7-10.4)
[2024-06-24 06:58] LABS: DIFFERENTIAL COMMENT 1
[2024-06-24 07:02] LABS: CREATININE 0.9 mg/dL (0.6-1.3); GLUCOSE 132 mg/dL (70-105); UREA NITROGEN BLOOD 32 mg/dL (9-23)
[2024-06-24 08:00] VITALS: BP 149/66; PULSE 57; RESP 18; TEMP 36.2; O2SAT 96
[2024-06-24 12:00] VITALS: BP 119/56; PULSE 68; RESP 18; TEMP 36.6; O2SAT 97
[2024-06-24] MEDS ORDERED: PRED5TAB48 MT (12:57)
[2024-06-24 13:16] LABS: PLATELET ESTIMATE NORMAL
[2024-06-24 15:19] VITALS: BP 125/60; PULSE 78; TEMP 97.4; O2SAT 99
[2024-06-24 16:00] VITALS: BP 116/70; PULSE 80; RESP 18; TEMP 36.6; O2SAT 96
== END 2024-06-24 17:05 | disposition home health service (06) | DRG 286 ==
LOC: ER 19:50 → 6WST 22:26
PROVIDERS: ADMIT Internal Medicine; ATTEND Internal Medicine
PROC: B211YZZ Fluoroscopy of Multiple Coronary Arteries using Other Contrast (ICD-10-PCS; principal; 2024-06-23)
DX: I11.0 Hypertensive heart disease with heart failure (principal); I50.33 Acute on chronic diastolic (congestive) heart failure; J96.90 Respiratory failure, unspecified, unspecified whether with hypoxia or hypercapnia; J44.1 Chronic obstructive pulmonary disease with (acute) exacerbation; I35.0 Nonrheumatic aortic (valve) stenosis; I25.10 Atherosclerotic heart disease of native coronary artery without angina pectoris; I48.0 Paroxysmal atrial fibrillation; R31.9 Hematuria, unspecified; D64.9 Anemia, unspecified; I27.20 Pulmonary hypertension, unspecified; E78.00 Pure hypercholesterolemia, unspecified; Z99.81 Dependence on supplemental oxygen; Z79.899 Other long term (current) drug therapy; Z85.46 Personal history of malignant neoplasm of prostate; Z85.51 Personal history of malignant neoplasm of bladder; Z88.0 Allergy status to penicillin; Z91.81 History of falling
CPT/HCPCS: 36415; 70551; 71045; 71260; 75571; 76536; 80048; 80061; 80076; 81003; 83880; 84153; 84443; 84484; 85025; 93005; 93306; 93454; 93880; 94070; 94640; 94664; 94760; 97162; 98960; 99291; A4606; C1769; C1887; C1893; J1650; J2250; J2919; J3010; J7626; J8597; Q9967